=== PATIENT | female | born 1985 | race American Indian/Alaskan Native ===

== ENCOUNTER 2017-09-14 08:28 | Emergency (ER) | payer MEDICAID ==
[2017-09-14] MEDS ORDERED: NORCO 5/325 PO ONE (09:06)
[2017-09-14] MEDS ORDERED: ZOFRAN ODT PO ONE (09:06)
[2017-09-14] MEDS ORDERED: XYLOCAINE 2% INFILTRATI ONE (09:10)
--- NOTE | 2017-09-14 09:15 | XRay Report ---
LEFT HAND, 3 views: History: Laceration, injury. Soft tissue injury between the first and second fingers is suspected with overlying bandage. No osseous abnormality or joint pathology is detected. No obvious soft tissue foreign body although bandaging material obscures detail. IMPRESSION: Soft tissue injury. No bony injury or convincing foreign body.
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
[2017-09-14 10:45] VITALS: BP 115/72
== END 2017-09-14 10:52 | disposition home or self-care (01) ==
LOC: ED 08:28
DX: S61.412A Laceration without foreign body of left hand, initial encounter (principal); E11.9 Type 2 diabetes mellitus without complications; F17.200 Nicotine dependence, unspecified, uncomplicated; F12.10 Cannabis abuse, uncomplicated; W25.XXXA Contact with sharp glass, initial encounter; Y93.89 Activity, other specified; Y92.89 Other specified places as the place of occurrence of the external cause; Y99.8 Other external cause status
CPT/HCPCS: Q0162

== ENCOUNTER 2019-05-04 09:39 | Outpatient (CLI) | payer OTHER ==
[2019-05-04 10:03] VITALS: BP 127/71
[2019-05-04] MEDS ORDERED: LACTATED RINGERS 500 ML IV ONE (10:57)
[2019-05-04 11:52] LABS: Bacteria,Urine 2+ /HPF (Negative); Bilirubin,Urine NEG (Negative); Blood,Urine LG (Negative); Color,Urine Yellow (Yellow); Mucus,Urine FEW /HPF; Protein,Urine <15 mg/dL mg/dL (Negative); Urobilinogen,Urine < 2.0 mg/dL (<2.0)
[2019-05-04 11:53] LABS: RBC,Urine > 182.0 /HPF (0.0-6.0)
== END 2019-05-04 12:30 | disposition home or self-care (01) ==
LOC: TRG 09:39
PROVIDERS: ATTEND Obstetrics & Gynecology
DX: O47.03 False labor before 37 completed weeks of gestation, third trimester (principal); Z3A.36 36 weeks gestation of pregnancy
CPT/HCPCS: 81001

== ENCOUNTER 2019-05-24 22:07 | Inpatient (IN) | payer OTHER ==
[2019-05-24] MEDS ORDERED: TERBUTALINE 1 MG/1 ML INJ IVP PRN (22:53)
[2019-05-24] MEDS ORDERED: TERBUTALINE 1 MG/1 ML INJ SUB-Q PRN (22:53)
[2019-05-24] MEDS ORDERED: AMPICILLIN/NS 2 GM/100 ML 2 GM/100 ML BAG IV ONE (22:53)
[2019-05-24] MEDS ORDERED: MINERAL OIL 30 ML ORAL LIQD PO PRN (22:53)
[2019-05-24] MEDS ORDERED: OXYTOCIN 20 UNIT/1000ML DRIP 20 UNITS/1,000 ML BAG IV SCH ×2 (23:00→23:45)
[2019-05-24] MEDS ORDERED: ONDANSETRON 4 MG/2 ML INJ IV PRN (23:01)
[2019-05-24] MEDS ORDERED: BUTORPHANOL 2 MG/1 ML INJ IV PRN (23:01)
[2019-05-24] MEDS ORDERED: LIDOCAINE (2%) 20 MG/1 ML VIAL 20 ML MDV INFILTRATI ONE (23:01)
[2019-05-24 23:43] LABS: Hematocrit 32.3 % (30.3-42.9); Hemoglobin 10.4 gm/dl (10.1-14.3); Mean Corpuscular HGB Conc 32 % (30-34); Mean Corpuscular Volume 81 fl (79-97); Platelet Count 204 K/mm3 (140-440); Red Blood Count 3.98 M/mm3 (3.65-5.03); Red Cell Distribution Width 16.9 % (13.2-15.2)
[2019-05-24] MEDS ORDERED: OXYTOCIN DRIP 30 UNITS/500 ML BAG IV SCH (23:45)
[2019-05-24] MEDS ORDERED: LACTATED RINGERS 1,000 ML IV SCH (23:45)
[2019-05-24] MEDS: LACTATED RINGERS 1,000 ML IV SCH (23:56)
--- NOTE | 2019-05-25 00:53 | History and Physical Report ---
History of Present Illness Date of examination: 05/25/19 Date of admission: 05/24/19 22:53 Chief complaint: ROM at 900p and UC since yesterday am Past History Past Medical History: asthma, migraines Past Surgical History: no surgical history [employer] History: chlamydia, herpes Family/Genetic History: hypertension, cancer Social history: smoking (former) - Obstetrical History Expected Date of Delivery: 05/31/19 Actual Gestation: 39 Week(s) 1 Day(s) : 6 Para: 3 (svdx3) Hx # Term Pregnancies: 2 Number of Pregnancies: 1 Spontaneous Abortions: 1 Induced : 1 Number of Living Children: 3 Medications and Allergies Allergies Allergy/AdvReac Type Severity Reaction Status Date / Time egg Allergy Swelling Verified 09/26/18 16:15 fish Allergy Swelling Uncoded 09/26/18 16:15 Home Medications Medication Instructions Recorded Confirmed Last Taken Type Albuterol Sulfate [Ventolin HFA] 2 puff IH Q4H PRN #1 hfa.aer.ad 05/25/14 05/24/19 Unknown Rx Fluticasone Propionate [Flovent 1 inh PO DAILY 05/24/19 05/24/19 Unknown History Hfa] Valacyclovir HCl [Valtrex] 1,000 mg PO DAILY 05/24/19 05/24/19 Unknown History Active Meds: Active Medications Butorphanol Tartrate (Stadol) 2 mg IV Q2H PRN PRN Reason: Pain , Severe (7-10) Ephedrine Sulfate (Ephedrine Sulfate) 10 mg IV Q2M PRN PRN Reason: Hypotension Lactated Ringer's (Lactated Ringers) 1,000 mls @ 125 mls/hr IV DIRECT KAYLA Last Admin: 05/24/19 23:56 Dose: 125 mls/hr Documented by: Ampicillin Sodium (Ampicillin/Ns 1 Gm/50 Ml) 1 gm in 50 mls @ 100 mls/hr IV Q4HR KAYLA; Protocol Lactated Ringer's (Lactated Ringers) 1,000 mls @ 125 mls/hr IV DIRECT KAYLA Oxytocin/Sodium Chloride (Pitocin/Ns 20 Unit/1000ml Drip) 20 units in 1,000 mls @ 125 mls/hr IV DIRECT KAYLA Oxytocin/Sodium Chloride (Pitocin/Ns 30 Unit/500ml) 30 units in 500 mls @ 4 mls/hr IV TITR KAYLA; Protocol Last Admin: 05/24/19 23:56 Dose: 4 milliunits/min, 4 mls/hr Documented by: Mineral Oil (Mineral Oil) 30 ml PO QHS PRN PRN Reason: Constipation Ondansetron HCl (Zofran) 4 mg IV Q8H PRN PRN Reason: Nausea And Vomiting Terbutaline Sulfate (Brethine) 0.25 mg SUB-Q ONCE PRN PRN Reason: Hyperstimulation/Hypertonicity Terbutaline Sulfate (Brethine) 0.25 mg IVP ONCE PRN PRN Reason: Hyperstimulation/Hypertonicity Review of Systems All systems: negative Genitourinary: leakage of fluid, contractions - Vital Signs Vital signs: Vital Signs Pulse BP Pulse Ox 123 H 139/67 97 05/24/19 22:22 05/24/19 22:22 05/24/19 22:22 Temp Pulse Resp BP Pulse Ox 98.1 F 101 H 20 119/66 99 05/24/19 23:37 05/25/19 00:44 05/24/19 23:37 05/24/19 23:37 05/25/19 00:44 - Physical Exam Breasts: Positive: deferred Cardiovascular: Regular rate Lungs: Positive: Normal air movement Abdomen: Positive: soft. Negative: tenderness Genitourinary (Female): Positive: normal external genitalia, normal perenium Vulva: both: normal Anus/Rectum: Positive: normal perianal skin Extremities: Positive: normal. Negative: tenderness, edema - Obstetrical FHR: category 1 Uterine Contraction Monitor Mode: External Cervical Dilatation: 4 Cervical Effacement Percentage: 60 station: -1 Uterine Contraction Frequency (min): 2 Uterine Contraction Pattern: Regular Results Result Diagrams: 05/24/19 23:05 Abnormal lab results 05/24/19 Range/Units 23:05 WBC 11.1 H (4.5-11.0) K/mm3 MCH 26 L (28-32) pg RDW 16.9 H (13.2-15.2) % All other labs normal. 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
[2019-05-25] MEDS ORDERED: ALBUTEROL 8.5 GM INHALATION IH PRN (00:57)
[2019-05-25] MEDS ORDERED: ALBUTEROL 2.5 MG/3 ML NEBU IH PRN (01:20)
[2019-05-25] MEDS ORDERED: AMPICILLIN/NS 1 GM/50 ML 1 GM/50 ML BAG IV SCH (03:03)
[2019-05-25] MEDS: LACTATED RINGERS 1,000 ML IV SCH ×2 (03:40→04:41)
[2019-05-25] MEDS ORDERED: SODIUM CHLORIDE P/F VIAL 10 ML 10 ML ONE (03:56)
[2019-05-25] MEDS ORDERED: DEXMEDETOMIDINE 200 MCG/2 ML VIAL IV ONE (03:56)
[2019-05-25] MEDS ORDERED: ePHEDrine SULFATE 50 MG/1 ML INJ IV PRN (04:12)
[2019-05-25] MEDS ORDERED: NALOXONE 2 MG/2 ML INJ IV PRN (04:12)
--- NOTE | 2019-05-25 04:13 | Anesthesia Consultation ---
Anesthesia Consult and Med Hx Date of service: 05/25/19 - Airway Anesthetic Teeth Evaluation: Good ROM Head & Neck: Adequate Mental/Hyoid Distance: Adequate Mallampati Class: Class II Intubation Access Assessment: Probably Good - Pulmonary Exam CTA: Yes - Cardiac Exam Cardiac Exam: RRR - Pre-Operative Health Status ASA Pre-Surgery Classification: ASA2 Proposed Anesthetic Plan: Epidural, Spinal - Pulmonary Hx Asthma: Yes (CURRENT, ALBUTEROL INHALER) COPD: No Hx Pneumonia: No - Cardiovascular System Hx Hypertension: No - Central Nervous System Hx Seizures: No Hx Psychiatric Problems: No - Endocrine Hx Renal Disease: No Hx End Stage Renal Disease: No Hx Hypothyroidism: No Hx Hyperthyroidism: No - Hematic Hx Anemia: No Hx Sickle Cell Disease: No - Other Systems Hx Alcohol Use: Yes - Additional Comments Anesthesia Medical History Comments: Migraines
[2019-05-25] MEDS: ePHEDrine SULFATE 50 MG/1 ML INJ IV PRN ×3 (04:40→05:01)
[2019-05-25] MEDS ORDERED: fentaNYL-BUPIV 2 MCG/ML-0.125% 200 MCG/100 ML BAG EPIDURAL SCH (05:00)
[2019-05-25] MEDS ORDERED: LIDOCAINE (2%) 20 MG/1 ML VIAL 20 ML MDV INFILTRATI ONE (06:00)
[2019-05-25] MEDS ORDERED: OXYTOCIN 10 UNIT/1 ML INJ IM ONE (06:07)
[2019-05-25] MEDS ORDERED: OXYTOCIN 10 UNIT/1 ML INJ ONE (06:08)
[2019-05-25] MEDS ORDERED: METHYLERGONOVINE MALEATE 0.2 MG/ML VIAL IM ONE ×2 (06:16)
[2019-05-25] MEDS ORDERED: MAGNESIUM HYDROXIDE (MOM) ORAL LIQD UDC PO PRN (06:27)
[2019-05-25] MEDS ORDERED: diphenhydrAMINE 25 MG CAP PO PRN (06:27)
[2019-05-25] MEDS ORDERED: ACETAMINOPHEN 325 MG TAB PO PRN (06:27)
[2019-05-25] MEDS ORDERED: WITCH HAZEL/ GLYCERIN PAD TP PRN (06:27)
[2019-05-25] MEDS ORDERED: PROMETHAZINE 25 MG TAB PO PRN (06:27)
[2019-05-25] MEDS ORDERED: LANOLIN/ZINC/DIMETHICONE (LANSINOH) 7 GM TP PRN (06:27)
--- NOTE | 2019-05-25 06:52 | Procedure Note ---
OB Delivery Note - Delivery Date of Delivery: 05/25/19 [employer] Uphol[employer] Estimator: GRACIA JUAREZ Estimated blood loss: 500cc - Vaginal Delivery presentation: vertex Delivery position: OA Intrapartum events: other(please specify) (GBS+; HSV2) Delivery induction: none Delivery augmentation: pitocin Delivery monitor: external FHT, external uterine Route of delivery: Delivery placenta: spontaneous Delivery cord: 3 umbilical vessels Episiotomy: midline Delivery laceration: 2nd degree Delivery repair: vicryl Anesthesia: epidural Delivery comments: Pt complete on my arrival to unit. live born male over 2nd degree episiotomy Baby to mom's abdomen skin to skin Cord clamped and cut. Placenta and membrane delivered complete and intact, 3 vessel cord. Pit IM given d/t no IV access. Noted several mod clots, mild uterine atony Methergine IM given. Repair with 2-0 vicryl. 8/9, EBL 500, Wgt 8-1 Mom and baby remain LDR stable. FF @ umb Lochia small with small clots. IV restarted Pit IVFs infusing - Infant A at 1 minute: 8 at 5 minutes: 9 Infant Gender: Male (wgt 8-1)
[2019-05-25] MEDS: HYDROcodone/ACETAMINOPHEN 5-325 MG TAB PO PRN ×3 (09:08→22:25)
[2019-05-25] MEDS ORDERED: FLUTICASONE PROPIONATE PO SCH ×2 (10:00)
[2019-05-25] MEDS ORDERED: BUDESONIDE 0.5 MG/2 ML NEBU IH SCH (11:00)
[2019-05-25] MEDS: IBUPROFEN 600 MG TAB PO SCH ×2 (12:31→18:38)
[2019-05-25 20:25] LABS: Hematocrit 27.1 % (30.3-42.9)
[2019-05-26] MEDS: IBUPROFEN 600 MG TAB PO SCH (00:05)
[2019-05-26] MEDS ORDERED: TETANUS,DIPH,PERTUSS(ACELL) VACCINE 0.5 ML SYRINGE IM ONE (06:00)
[2019-05-26] MEDS ORDERED: MEASLES, MUMPS & RUBELLA 12,500 UNIT/0.5 ML VACCINE SUB-Q ONE (06:00)
[2019-05-26] MEDS: HYDROcodone/ACETAMINOPHEN 5-325 MG TAB PO PRN (06:22)
--- NOTE | 2019-05-26 06:40 | Discharge Summary ---
Providers - Providers Date of Admission: 05/24/19 22:53 Date of discharge: 05/26/19 (pt desires d/c) Attending physician: OG LEE Primary care physician: OG LEE Hospitalization Reason for admission: active labor Delivery: Episiotomy: midline Laceration: 2nd degree Incision: normal, dry, intact Other procedures: none complications: none Discharge diagnosis: IUP at term delivered baby: male (pt will call office to [facility]) Hospital course: uncomplicated vaginal delivery Pt awake No c/o voiced desires d/c today if possible VSS FF below umb Lochia small Perineum slight swelling H&H 04/03 No evidence anemia Doing well s/p vag delivery P: d/c today with instruction Depo @ d/c Will [facility] Condition at discharge: Good Disposition: DC-01 TO HOME OR SELFCARE - Discharge Diagnoses (1) Spontaneous vaginal delivery Status: Acute Comment: RTO 4 weeks PP care Plan - Provider Discharge Summary Additional instructions: [] Smoking cessation referral if applicable(refer to patient education folder for contact #) [] Refer to [facility]'s [facility] Booklet Call your doctor immediately for: * Fever > 100.5 * Heavy vaginal bleeding ( >1 pad per hour) * Severe persistent headache * Shortness of breath * Reddened, hot, painful area to leg or breast * Drainage or odor from incision. * Keep incision clean and dry at all times and follow doctor's instructions regarding bathing/showering - Follow up plan Follow up: OG LEE MD [Primary Care Provider] - 06/24/19 (Congratulations! Please call [phone] to schedule your visit in 4 weeks and your son's circumcision in 1 week. Bring the EMLA cream with you to his visit. Do NOT use at home. Take Motrin for cramping as prescribed. Call with concerns. )
[2019-05-26] MEDS ORDERED: medroxyPROGESTERone ACETATE 150 MG/ML SYRINGE IM ONE (07:00)
[2019-05-26 13:10] VITALS: BP 130/75
== END 2019-05-26 12:05 | disposition home or self-care (01) | DRG 774 ==
LOC: TRG 22:07 → LD 22:53 → TRG 22:53 → OB 05-25 08:57
PROVIDERS: ADMIT Obstetrics & Gynecology; ATTEND Obstetrics & Gynecology
PROC: 10E0XZZ Delivery of Products of Conception, External Approach (ICD-10-PCS; principal; 2019-05-25)
PROC: 0KQM0ZZ Repair Perineum Muscle, Open Approach (ICD-10-PCS; 2019-05-25)
PROC: 0W8NXZZ Division of Female Perineum, External Approach (ICD-10-PCS; 2019-05-25)
PROC: 3E0R3BZ Introduction of Anesthetic Agent into Spinal Canal, Percutaneous Approach (ICD-10-PCS; 2019-05-25)
PROC: 00HU33Z Insertion of Infusion Device into Spinal Canal, Percutaneous Approach (ICD-10-PCS; 2019-05-25)
PROC: 3E0234Z Introduction of Serum, Toxoid and Vaccine into Muscle, Percutaneous Approach (ICD-10-PCS; 2019-05-26)
DX: O42.02 Full-term premature rupture of membranes, onset of labor within 24 hours of rupture (principal); O98.52 Other viral diseases complicating childbirth; Z3A.39 39 weeks gestation of pregnancy; O99.354 Diseases of the nervous system complicating childbirth; Z37.0 Single live birth; Z23 Encounter for immunization; G43.909 Migraine, unspecified, not intractable, without status migrainosus; J45.909 Unspecified asthma, uncomplicated; Z82.49 Family history of ischemic heart disease and other diseases of the circulatory system; Z80.9 Family history of malignant neoplasm, unspecified; Z87.891 Personal history of nicotine dependence; Z91.012 Allergy to eggs; Z91.013 Allergy to seafood; O99.824 Streptococcus B carrier state complicating childbirth; B00.9 Herpesviral infection, unspecified; O99.52 Diseases of the respiratory system complicating childbirth; O70.1 Second degree perineal laceration during delivery
CPT/HCPCS: 36415; 59025; 85014; 85018; 85027; 86592; 86850; 86900; 86901; 90715; 94640; G0378; J0290; J0595; J2210; J2590; J3490; J7120

== ENCOUNTER 2020-11-10 19:29 | Emergency (ER) | payer OTHER, MEDICAID ==
[2020-11-10] MEDS ORDERED: dexAMETHasone 4 MG/ML VIAL IV ONE (20:46)
[2020-11-10] MEDS ORDERED: IPRATROPIUM 0.02% NEBU 2.5 ML IH ONE (20:46)
[2020-11-10] MEDS ORDERED: ALBUTEROL 2.5 MG/3 ML NEBU IH ONE (20:46)
--- NOTE | 2020-11-10 21:10 | Emergency Department Report ---
ED General Adult HPI - General Chief complaint: Adult Asthma Stated complaint: BARRY Time Seen by Provider: 11/10/20 20:46 Source: EMS Mode of arrival: Stretcher Limitations: No Limitations - History of Present Illness Initial comments: The patient presents to the emergency department with a chief complaint of issues with asthma. Patient states that this season has been worse for her asthma due to the pollen. Patient also complains of dry cough. She states that she is used her nebulizer 4 times a day without any improvement. Patient also complains of some left lateral chest pain that has been present for couple of days continuously. The pain is worse with breathing. Severity scale (0 -10): 3 Quality: sharp Consistency: constant Improves with: none Worsens with: none Associated Symptoms: denies other symptoms Treatments Prior to Arrival: none - Related Data Home Medications Medication Instructions Recorded Confirmed Last Taken Fluticasone Propionate [Flovent 1 inh PO DAILY 05/24/19 05/24/19 Unknown Hfa] Valacyclovir HCl [Valtrex] 1,000 mg PO DAILY 05/24/19 05/24/19 Unknown Previous Rx's Medication Instructions Recorded Last Taken Type Albuterol Sulfate [Ventolin HFA] 2 puff IH Q4H PRN #1 hfa.aer.ad 05/25/14 Unknown Rx Ibuprofen [Motrin 800 MG tab] 800 mg PO TID PRN #30 tablet 05/26/19 Unknown Rx Lidocain2.5%/Prilocai2.5% [Emla] 5 gm TP PRN #1 tube 05/26/19 Unknown Rx Albuterol Mdi (or & Nicu Only) 2 puff IH Q4HR PRN #1 inhalation 11/10/20 Unknown Rx [ProAir HFA Inhaler] Albuterol Sulfate [Albuterol 0.63% 0.63 mg IH Q4HR PRN #30 ml 11/10/20 Unknown Rx NEBS] predniSONE [Deltasone] 20 mg PO DAILY #15 tablet 11/10/20 Unknown Rx Allergies Allergy/AdvReac Type Severity Reaction Status Date / Time egg Allergy Swelling Verified 09/26/18 16:15 fish Allergy Swelling Uncoded 09/26/18 16:15 ED Review of Systems ROS: Stated complaint: BARRY Other details as noted in HPI Constitutional: denies: chills, fever Eyes: denies: eye pain, eye discharge, vision change ENT: denies: ear pain, throat pain Respiratory: shortness of breath, wheezing. denies: cough Cardiovascular: denies: chest pain, palpitations Endocrine: no symptoms reported Gastrointestinal: denies: abdominal pain, nausea, diarrhea Genitourinary: denies: urgency, dysuria, discharge Musculoskeletal: denies: back pain, joint swelling, arthralgia Skin: denies: rash, lesions Neurological: denies: headache, weakness, paresthesias Psychiatric: denies: anxiety, depression Hematological/Lymphatic: denies: easy bleeding, easy bruising ED Past Medical Hx - Past Medical History Previous Medical History?: Yes Hx Hypertension: No Hx Congestive Heart Failure: No Hx Diabetes: No Hx Deep Vein Thrombosis: No Hx Renal Disease: No Hx Sickle Cell Disease: No Hx Arthritis: Yes Hx Seizures: No Hx Asthma: Yes (CURRENT, ALBUTEROL INHALER) Hx COPD: No Hx HIV: No - Surgical History Past Surgical History?: Yes Additional Surgical History: lumpectomy - Social History Smoking Status: Never Smoker Substance Use Type: Alcohol - Medications Home Medications: Home Medications Medication Instructions Recorded Confirmed Last Taken Type Albuterol Sulfate [Ventolin HFA] 2 puff IH Q4H PRN #1 hfa.aer.ad 05/25/14 05/24/19 Unknown Rx Fluticasone Propionate [Flovent 1 inh PO DAILY 05/24/19 05/24/19 Unknown History Hfa] Valacyclovir HCl [Valtrex] 1,000 mg PO DAILY 05/24/19 05/24/19 Unknown History Ibuprofen [Motrin 800 MG tab] 800 mg PO TID PRN #30 tablet 05/26/19 Unknown Rx Lidocain2.5%/Prilocai2.5% [Emla] 5 gm TP PRN #1 tube 05/26/19 Unknown Rx Albuterol Mdi (or & Nicu Only) 2 puff IH Q4HR PRN #1 inhalation 11/10/20 Unknown Rx [ProAir HFA Inhaler] Albuterol Sulfate [Albuterol 0.63% 0.63 mg IH Q4HR PRN #30 ml 11/10/20 Unknown Rx NEBS] predniSONE [Deltasone] 20 mg PO DAILY #15 tablet 11/10/20 Unknown Rx ED Physical Exam - General Limitations: No Limitations General appearance: alert, in no apparent distress - Head Head exam: Present: atraumatic, normocephalic - Eye Eye exam: Present: normal appearance - ENT ENT exam: Present: mucous membranes moist - Neck Neck exam: Present: normal inspection - Respiratory Respiratory exam: Present: wheezes. Absent: respiratory distress - Cardiovascular Cardiovascular Exam: Present: regular rate, normal rhythm. Absent: systolic murmur, diastolic murmur, rubs, gallop - GI/Abdominal GI/Abdominal exam: Present: soft, normal bowel sounds. Absent: distended, tenderness - Extremities Exam Extremities exam: Present: normal inspection - Back Exam Back exam: Present: normal inspection - Neurological Exam Neurological exam: Present: alert, oriented X3, CN II-XII intact. Absent: motor sensory deficit - Psychiatric Psychiatric exam: Present: normal affect, normal mood - Skin Skin exam: Present: warm, dry, intact, normal color. Absent: rash ED Course Vital Signs 11/10/20 11/10/20 11/10/20 19:44 19:45 19:46 Temperature 98.4 F Pulse Rate 86 101 H Respiratory 10 L 17 Rate Blood Pressure 131/88 O2 Sat by Pulse 99 99 Oximetry 11/10/20 11/10/20 11/10/20 20:01 20:31 21:01 Temperature Pulse Rate 88 90 81 Respiratory 12 14 14 Rate Blood Pressure 145/74 121/73 121/82 O2 Sat by Pulse 99 97 98 Oximetry 11/10/20 21:46 Temperature Pulse Rate Respiratory Rate Blood Pressure O2 Sat by Pulse 98 Oximetry ED Medical Decision Making - Lab Data Result diagrams: 11/10/20 20:57 11/10/20 20:57 Lab Results 11/10/20 11/10/20 11/10/20 Range/Units 20:57 20:57 20:57 WBC 11.3 H (4.5-11.0) K/mm3 RBC 4.59 (3.65-5.03) M/mm3 Hgb 14.3 (10.1-14.3) gm/dl Hct 42.1 (30.3-42.9) % MCV 92 (79-97) fl MCH 31 (28-32) pg MCHC 34 (30-34) % RDW 13.4 (13.2-15.2) % Plt Count 314 (140-440) K/mm3 Lymph % (Auto) 10.2 L (13.4-35.0) % Iron % (Auto) 1.8 (0.0-7.3) % Eos % (Auto) 0.3 (0.0-4.3) % Baso % (Auto) 0.4 (0.0-1.8) % Lymph # (Auto) 1.2 (1.2-5.4) K/mm3 Iron # (Auto) 0.2 (0.0-0.8) K/mm3 Eos # (Auto) 0.0 (0.0-0.4) K/mm3 Baso # (Auto) 0.0 (0.0-0.1) K/mm3 Seg Neutrophils % 87.3 H (40.0-70.0) % Seg Neutrophils # 9.8 H (1.8-7.7) K/mm3 D-Dimer < 135.00 (0-234) ng/mlDDU Sodium 138 (137-145) mmol/L Potassium 3.1 L (3.6-5.0) mmol/L Chloride 104.0 (98-107) mmol/L Carbon Dioxide 24 (22-30) mmol/L Anion Gap 13 mmol/L BUN 5 L (7-17) mg/dL Creatinine 0.3 L (0.6-1.2) mg/dL Estimated GFR > 60 ml/min BUN/Creatinine Ratio 17 % Glucose 105 H (65-100) mg/dL Calcium 8.7 (8.4-10.2) mg/dL Total Bilirubin 0.30 (0.1-1.2) mg/dL AST 16 (5-40) units/L ALT 13 (7-56) units/L Alkaline Phosphatase 73 (35-129) units/L Troponin T (0.00-0.029) ng/mL Total Protein 7.6 (6.3-8.2) g/dL Albumin 4.4 (3.9-5) g/dL Albumin/Globulin Ratio 1.4 % 11/10/20 Range/Units 20:57 WBC (4.5-11.0) K/mm3 RBC (3.65-5.03) M/mm3 Hgb (10.1-14.3) gm/dl Hct (30.3-42.9) % MCV (79-97) fl MCH (28-32) pg MCHC (30-34) % RDW (13.2-15.2) % Plt Count (140-440) K/mm3 Lymph % (Auto) (13.4-35.0) % Iron % (Auto) (0.0-7.3) % Eos % (Auto) (0.0-4.3) % Baso % (Auto) (0.0-1.8) % Lymph # (Auto) (1.2-5.4) K/mm3 Iron # (Auto) (0.0-0.8) K/mm3 Eos # (Auto) (0.0-0.4) K/mm3 Baso # (Auto) (0.0-0.1) K/mm3 Seg Neutrophils % (40.0-70.0) % Seg Neutrophils # (1.8-7.7) K/mm3 D-Dimer (0-234) ng/mlDDU Sodium (137-145) mmol/L Potassium (3.6-5.0) mmol/L Chloride (98-107) mmol/L Carbon Dioxide (22-30) mmol/L Anion Gap mmol/L BUN (7-17) mg/dL Creatinine (0.6-1.2) mg/dL Estimated GFR ml/min BUN/Creatinine Ratio % Glucose (65-100) mg/dL Calcium (8.4-10.2) mg/dL Total Bilirubin (0.1-1.2) mg/dL AST (5-40) units/L ALT (7-56) units/L Alkaline Phosphatase (35-129) units/L Troponin T < 0.010 (0.00-0.029) ng/mL Total Protein (6.3-8.2) g/dL Albumin (3.9-5) g/dL Albumin/Globulin Ratio % - Radiology Data Radiology results: report reviewed - Medical Decision Making Prior to arrival the patient received a breathing treatment and Solu-Medrol via EMS Patient received hour-long breathing treatment Discussed results and plan of care with patient Critical Care Time: Yes Critical care time in (mins) excluding proc time.: 35 Critical care attestation.: If time is entered above; I have spent that time in minutes in the direct care of this critically ill patient, excluding procedure time. ED Disposition Clinical Impression: Acute asthma exacerbation Disposition: DC-01 TO HOME OR SELFCARE Is pt being admited?: No Does the pt Need Aspirin: No Condition: Stable Instructions: Asthma, Adult Additional Instructions: Return if worse Time of Disposition: 22:25
[2020-11-10 21:18] LABS: Basophils % (Auto) 0.4 % (0.0-1.8); Eosinophils % (Auto) 0.3 % (0.0-4.3); Hematocrit 42.1 % (30.3-42.9); Hemoglobin 14.3 gm/dl (10.1-14.3); Lymphocytes # (Auto) 1.2 K/mm3 (1.2-5.4); Lymphocytes % (Auto) 10.2 % (13.4-35.0); Mean Corpuscular HGB Conc 34 % (30-34); Mean Corpuscular Volume 92 fl (79-97); Monocytes # (Auto) 0.2 K/mm3 (0.0-0.8); Monocytes % (Auto) 1.8 % (0.0-7.3); Platelet Count 314 K/mm3 (140-440); Red Blood Count 4.59 M/mm3 (3.65-5.03); Red Cell Distribution Width 13.4 % (13.2-15.2)
[2020-11-10 21:41] LABS: Alanine Aminotransferase 13 units/L (7-56); Albumin 4.4 g/dL (3.9-5); Blood Urea Nitrogen 5 mg/dL (7-17); Calcium 8.7 mg/dL (8.4-10.2); Hemolysis Index 1
[2020-11-10 21:42] LABS: BUN/Creatinine Ratio 17
--- NOTE | 2020-11-10 22:02 | XRay Report ---
CHEST 1 VIEW 11/10/2020 8:40 PM INDICATION / CLINICAL INFORMATION: Asthma. COMPARISON: 05/25/2014 FINDINGS: SUPPORT DEVICES: None. HEART / MEDIASTINUM: Stable. LUNGS / PLEURA: No significant pulmonary or pleural abnormality. No pneumothorax. Mild bilateral anne bronchial cuffing, similar to prior exam. ADDITIONAL FINDINGS: No significant additional findings. IMPRESSION: 1. Persistent mild peribronchial cuffing consistent with provided history of asthma. 2. No confluent infiltrates. Signer Name: aRmiro Fontenot MD Signed: 11/10/2020 9:57 PM Workstation Name: [id number]
[2020-11-10] MEDS ORDERED: HYDROcodone/ACETAMINOPHEN 5-325 MG TAB PO ONE (22:20)
[2020-11-10] MEDS ORDERED: ONDANSETRON 4 MG ODT TAB PO ONE (22:20)
[2020-11-10 22:37] VITALS: BP 128/91
--- NOTE | 2020-11-11 18:43 | Electrocardiograph Report ---
[facility] Test Date: 2020-11-10 Test Time: 21:21:31 Pat Name: FAHEEM REYES Department: Room: Gender: F Personal Loan Specialist: Steve FREEMAN : 1985 Requested By: SERENE ARIZA Order Number: [id number] Reading MD: Johnathan Michelle Measurements Intervals [place] Rate: 79 P: 65 MD: 162 QRS: 55 QRSD: 93 T: 62 QT: 442 QTc: 508 Interpretive Statements Sinus rhythm Prolonged QT interval No previous ECG available for comparison Electronically Signed On 11-11-2020 18:43:37 EDT by Johnathan Michelle
== END 2020-11-10 22:45 | disposition home or self-care (01) ==
LOC: ED 19:29
DX: J45.901 Unspecified asthma with (acute) exacerbation (principal); M19.91 Primary osteoarthritis, unspecified site; Z98.890 Other specified postprocedural states; Z79.899 Other long term (current) drug therapy; Z91.012 Allergy to eggs; Z91.013 Allergy to seafood
CPT/HCPCS: 36415; 71045; 80053; 84484; 85025; 85379; 93005; 94644; Q0162

== ENCOUNTER 2020-12-02 19:24 | Emergency (ER) | payer OTHER, MEDICAID ==
--- NOTE | 2020-12-02 22:03 | XRay Report ---
RIGHT HAND 3 VIEWS INDICATION / CLINICAL INFORMATION: Right index finger swelling and pain. COMPARISON: None available. FINDINGS: BONES / JOINT(S): The joint spaces are well-maintained. No significant arthritis. There is no evidenc e of fracture, subluxation or destructive lesion. SOFT TISSUES: There is mild localized soft tissue swelling involving the base of the distal phalanx o f the index finger posteriorly. I do not identify a radiopaque foreign body. ADDITIONAL FINDINGS: None. Signer Name: Jarvis Barboza MD Signed: 12/02/2020 9:59 PM Workstation Name: [id number]
--- NOTE | 2020-12-02 22:55 | Emergency Department Report ---
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 Since that time she reported dull throbbing pain to the to the fingernail bed as well as some discoloration swelling and also also elevation of the nail. She is suspicious of a break and wanted to have it evaluated. States that there is been some episodes of coolness and tingling to the fingertip as well. MD Complaint: Injury to:: right, finger - Related Data Home Medications Medication Instructions Recorded Confirmed Last Taken Fluticasone Propionate [Flovent 1 inh PO DAILY 05/24/19 05/24/19 Unknown Hfa] Valacyclovir HCl [Valtrex] 1,000 mg PO DAILY 05/24/19 05/24/19 Unknown Previous Rx's Medication Instructions Recorded Last Taken Type Albuterol Sulfate [Ventolin HFA] 2 puff IH Q4H PRN #1 hfa.aer.ad 05/25/14 Unknown Rx Ibuprofen [Motrin 800 MG tab] 800 mg PO TID PRN #30 tablet 05/26/19 Unknown Rx Lidocain2.5%/Prilocai2.5% [Emla] 5 gm TP PRN #1 tube 05/26/19 Unknown Rx Albuterol Mdi (or & Nicu Only) 2 puff IH Q4HR PRN #1 inhalation 11/10/20 Unknown Rx [ProAir HFA Inhaler] Albuterol Sulfate [Albuterol 0.63% 0.63 mg IH Q4HR PRN #30 ml 11/10/20 Unknown Rx NEBS] predniSONE [Deltasone] 20 mg PO DAILY #15 tablet 11/10/20 Unknown Rx Allergies Allergy/AdvReac Type Severity Reaction Status Date / Time egg Allergy Swelling Verified 09/26/18 16:15 fish Allergy Swelling Uncoded 09/26/18 16:15 ED Review of Systems ROS: Stated complaint: RT INDEX FINGER SWELLING Other details as noted in HPI Comment: All other systems reviewed and negative ED Past Medical Hx - Past Medical History Previous Medical History?: Yes Hx Hypertension: No Hx Congestive Heart Failure: No Hx Diabetes: No Hx Deep Vein Thrombosis: No Hx Renal Disease: No Hx Sickle Cell Disease: No Hx Arthritis: Yes Hx Seizures: No Hx Asthma: Yes (CURRENT, ALBUTEROL INHALER) Hx COPD: No Hx HIV: No - Surgical History Past Surgical History?: Yes Additional Surgical History: lumpectomy - Social History Smoking Status: Never Smoker Substance Use Type: None - Medications Home Medications: Home Medications Medication Instructions Recorded Confirmed Last Taken Type Albuterol Sulfate [Ventolin HFA] 2 puff IH Q4H PRN #1 hfa.aer.ad 05/25/14 05/24/19 Unknown Rx Fluticasone Propionate [Flovent 1 inh PO DAILY 05/24/19 05/24/19 Unknown History Hfa] Valacyclovir HCl [Valtrex] 1,000 mg PO DAILY 05/24/19 05/24/19 Unknown History Ibuprofen [Motrin 800 MG tab] 800 mg PO TID PRN #30 tablet 05/26/19 Unknown Rx Lidocain2.5%/Prilocai2.5% [Emla] 5 gm TP PRN #1 tube 05/26/19 Unknown Rx Albuterol Mdi (or & Nicu Only) 2 puff IH Q4HR PRN #1 inhalation 11/10/20 Unkno wn Rx [ProAir HFA Inhaler] Albuterol Sulfate [Albuterol 0.63% 0.63 mg IH Q4HR PRN #30 ml 11/10/20 Unknown Rx NEBS] predniSONE [Deltasone] 20 mg PO DAILY #15 tablet 11/10/20 Unknown Rx ED Physical Exam - General Limitations: No Limitations General appearance: alert, in no apparent distress - Head Head exam: Present: atraumatic, normocephalic - Eye Eye exam: Present: normal appearance, PERRL, EOMI Pupils: Present: normal accommodation - ENT ENT exam: Present: normal exam, normal orophraynx, mucous membranes moist, TM's normal bilaterally - Neck Neck exam: Present: normal inspection, full ROM - Respiratory Respiratory exam: Present: normal lung sounds bilaterally. Absent: respiratory distress, wheezes, rales, chest wall tenderness, accessory muscle use - Cardiovascular Cardiovascular Exam: Present: regular rate, normal rhythm. Absent: systolic murmur, diastolic murmur, rubs, gallop - GI/Abdominal GI/Abdominal exam: Present: soft, normal bowel sounds - Extremities Exam Extremities exam: Present: normal inspection, tenderness, normal capillary refill, other - Expanded Upper Extremity Exam Right Hand Wrist exam: Present: tenderness, ecchymosis Hand L/R Back: 1 - Swelling subungual hematoma to this region - Back Exam Back exam: Present: normal inspection. Absent: CVA tenderness (R), CVA tenderness (L), paraspinal tenderness - Neurological Exam Neurological exam: Present: alert, oriented X3, CN II-XII intact, normal gait - Psychiatric Psychiatric exam: Present: normal affect, normal mood - Skin Skin exam: Present: warm, dry, intact, normal color. Absent: rash, diaphoretic, erythema ED Course Vital Signs 12/02/20 21:19 Temperature 98.7 F Pulse Rate 84 Respiratory 18 Rate Blood Pressure 141/93 O2 Sat by Pulse 100 Oximetry ED Medical Decision Making - Radiology Data Radiology results: report reviewed No fracture Critical care attestation.: If time is entered above; I have spent that time in minutes in the direct care of this critically ill patient, excluding procedure time. ED Disposition Clinical Impression: Subungual contusion of fingernail, Crush injury to finger Disposition: DC-01 TO HOME OR SELFCARE Is pt being admited?: No Does the pt Need Aspirin: No Condition: Stable Instructions: Subungual Hematoma, Contusion, Contusion, [id number], Fing ernail or Toenail Removal, Adult, Care After, How to Use Cold Therapy Referrals: DANNA ADAME,MIKIE [Other] - 3-5 Days
[2020-12-02 23:21] VITALS: BP 132/72
== END 2020-12-02 23:21 | disposition home or self-care (01) ==
LOC: ED 19:24
DX: S60.121A Contusion of right index finger with damage to nail, initial encounter (principal); M19.91 Primary osteoarthritis, unspecified site; J45.909 Unspecified asthma, uncomplicated; Z98.890 Other specified postprocedural states; Z79.1 Long term (current) use of non-steroidal anti-inflammatories (NSAID); Z79.899 Other long term (current) drug therapy; Z91.012 Allergy to eggs; Z91.013 Allergy to seafood; W23.0XXA Caught, crushed, jammed, or pinched between moving objects, initial encounter; Y93.89 Activity, other specified; Y92.89 Other specified places as the place of occurrence of the external cause; Y99.8 Other external cause status